=== PATIENT | male | born 1960 | race Asian ===

== ENCOUNTER 2018-04-29 11:47 | Emergency (ER) | payer MEDICAID ==
[~2018-04-29] VITALS: Ht 182.9 cm; Wt 126.4 kg
[~2018-04-29 11:47] MED LIST: ASPI81 PO; ATOR40TA28 PO; CARV3 PO; DIGO-44 PO; FURO40 PO; GLIP5 PO; ISOS5TAB5 PO; LISI-662 PO; METF500T6 PO; RIVA20TA PO
[2018-04-29 12:07] VITALS: BP 123/77
[2018-04-29 12:14] LABS: GLUCOSE,POINT OF CARE 137 MG/DL (70-110)
[2018-04-29] MEDS ORDERED: LISINOPRIL 10 MG TABLET PO ONE (14:45)
[2018-04-29] MEDS ORDERED: FUROSEMIDE 20 MG TABLET PO ONE (14:45)
[2018-04-29] MEDS ORDERED: ASPIRIN 81 MG CHEWABLE TABLET PO ONE (14:45)
[2018-04-29] MEDS ORDERED: ATORVASTATIN CALCIUM 40 MG TABLET PO ONE (14:45)
[2018-04-29] MEDS ORDERED: MetFORMIN HCL 500 MG TABLET PO ONE (14:45)
[2018-04-29] MEDS ORDERED: ISOSORBIDE DINITRATE 5 MG TABLET PO ONE (14:45)
[2018-04-29] MEDS ORDERED: RIVAROXABAN 20 MG TABLET PO ONE (14:45)
[2018-04-29] MEDS ORDERED: GlipiZIDE 5 MG TABLET PO ONE (14:45)
[2018-04-29] MEDS ORDERED: CARVEDILOL 3.125 MG TABLET PO ONE (14:45)
[2018-04-29] MEDS ORDERED: DIGOXIN 250 MCG/ML 2 ML AMP IVP ONE (14:45)
== END 2018-04-29 14:48 | disposition left against medical advice (07) ==
LOC: EMS 11:47
DX: I11.0 Hypertensive heart disease with heart failure (principal); I50.9 Heart failure, unspecified; R60.0 Localized edema; I48.91 Unspecified atrial fibrillation; F17.210 Nicotine dependence, cigarettes, uncomplicated; Z91.19 Patient's noncompliance with other medical treatment and regimen; Z59.0 Homelessness; Z91.013 Allergy to seafood
CPT/HCPCS: 93005; 99285

== ENCOUNTER 2021-12-09 16:25 | Inpatient (IN) | payer MEDICAID ==
[~2021-12-09] VITALS: Ht 182.9 cm; Wt 139.9 kg
[~2021-12-09 16:25] MED LIST changes: +ASPI-1450 PO; -ASPI81 PO; -DIGO-44 PO; +DIGO125T84 PO; -LISI-662 PO; +LISI-894 PO; +METF-1211 PO; -METF500T6 PO
[2021-12-09 18:15] LABS: APPEARANCE,URINE CLEAR (CLEAR); BILIRUBIN,URINE NEGATIVE (NEGATIVE); GLUCOSE, URINE (UA) NEGATIVE (NEGATIVE); KETONES,URINE NEGATIVE (NEGATIVE); LEUKOCYTE ESTERASE ,URINE NEGATIVE (NEGATIVE); NITRATE,URINE NEGATIVE (NEGATIVE); OCCULT BLOOD,URINE NEGATIVE (NEGATIVE); PH,URINE 5.5 (5.0-8.0); PROTEIN,URINE NEGATIVE (NEGATIVE); UROBILINOGEN,URINE 0.2 mg/dL (<=1.0)
[2021-12-09 18:32] LABS: BASOPHILS % (AUTO) 1.2 % (0.0-2.0); EOSINOPHILS % (AUTO) 0.1 % (1.0-6.0); HEMATOCRIT 26.7 % (41-53); HEMOGLOBIN 8.1 g/dL (13.5-17.5); LYMPHOCYTES # (AUTO) 0.2 K/uL (1.0-4.8); LYMPHOCYTES % (AUTO) 5.7 % (22.0-44.0); MEAN CORPUSCULAR HEMOGLOBIN 26.4 pg (26.0-34.0); MEAN CORPUSCULAR HGB CONC 30.2 G/dL (31.0-37.0); MEAN CORPUSCULAR VOLUME 87 fL (80-100); MONOCYTES % (AUTO) 0.9 % (2.0-9.0); NEUTROPHILS # (AUTO) 3.7 K/uL (1.8-7.7); PLATELET COUNT (AUTO) 319 K/uL (150-450); RED BLOOD CELL COUNT(AUTO) 3.06 MIL/uL (4.50-5.90); RED CELL DISTRIBUTION WIDTH 18.4 % (11.5-14.5)
[2021-12-09 18:33] LABS: NEUTROPHILS % (AUTO) 92.1 % (40.0-70.0)
[2021-12-09 18:35] LABS: ANION GAP 3 mmol/L (8-16); CALCIUM, TOTAL 8.7 mg/dL (8.8-10.5); CARBON DIOXIDE 32 mmol/L (22-29); CHLORIDE 102 mmol/L (98-107); CREATININE 1.12 mg/dL (0.60-1.30); GLOMERULAR FILTR. RATE CALC > 60 mL/min (>60); GLUCOSE,RANDOM 183 mg/dL (70-110); POTASSIUM 5.8 mmol/L (3.5-5.1); SODIUM SERUM 137 mmol/L (136-145); UREA NITROGEN, BLOOD 28 mg/dL (7-18)
[2021-12-09 18:41] LABS: ALANINE AMINOTRANSFERASE 9 U/L (12-78); ALBUMIN 2.5 g/dL (3.4-5.0); ALKALINE PHOSPHATASE 147 U/L (46-116); ASPARTATE AMINOTRANSFERASE 15 U/L (15-37); BILIRUBIN,TOTAL 0.7 mg/dL (0.1-1.0); CREATINE KINASE, TOTAL ONLY 27 U/L (39-308); TOTAL PROTEIN, SERUM 7.1 g/dL (6.4-8.2)
[2021-12-09 18:47] LABS: B-TYPE NATRIURETIC PEPTIDE 464 pg/mL (0-100)
[2021-12-09] MEDS ORDERED: INSULIN REGULAR, HUMAN 100 UNITS/ML SQ ONE (20:00)
[2021-12-09] MEDS ORDERED: FUROSEMIDE 40 MG/4 ML VIAL IVP ONE (20:00)
[2021-12-09] MEDS ORDERED: DEXTROSE 50%-WATER 25 GM/50 ML SYRINGE IVP ONE (20:00)
[2021-12-09] MEDS ORDERED: ALBUTEROL SULFATE 5 MG/ML 20 ML NEB SOLN [BULK] NEB ONE (20:00)
[2021-12-09] MEDS ORDERED: ONDANSETRON HCL 4 MG/2 ML VIAL IVP PRN (20:00)
[2021-12-09 20:01] LABS: RETICULOCYTE % (AUTO) 2.7 % (0.5-2.3)
[2021-12-09 20:11] LABS: % IRON SATURATION 4.7 % (30-44)
[2021-12-09] MEDS ORDERED: DEXTROSE 50%-WATER 25 GM/50 ML SYRINGE IVP PRN (21:15)
[2021-12-09] MEDS ORDERED: 0.9% SODIUM CHLORIDE 5 ML NEB SOLUTION NEB ONE (21:32)
[2021-12-09] MEDS ORDERED: IPRATROPIUM BROMIDE HFA 17 MCG/PUFF 12.9 GM INHALER IH PRN (22:15)
[2021-12-09] MEDS ORDERED: ALBUTEROL SULFATE 2.5 MG/0.5 ML NEB SOLUTION NEB PRN (22:15)
[2021-12-09] MEDS: FUROSEMIDE 20 MG/2 ML VIAL IVP SCH (23:18)
[2021-12-09 23:22] LABS: CALCIUM, TOTAL 8.5 mg/dL (8.8-10.5); CREATININE 1.22 mg/dL (0.60-1.30); POTASSIUM 5.7 mmol/L (3.5-5.1)
[2021-12-09 23:28] LABS: INR 1.2 (0.9-1.1); PROTHROMBIN TIME 12.2 SEC (9.4-11.6)
[2021-12-10] MEDS ORDERED: HEPARIN SODIUM,PORCINE 5,000 UNITS/ML VIAL SQ SCH
[2021-12-10 00:13] VITALS: BP 141/68
[2021-12-10 04:00] VITALS: BP 142/92
[2021-12-10] MEDS: FUROSEMIDE 20 MG/2 ML VIAL IVP SCH ×4 (04:04→22:16)
[2021-12-10 06:16] LABS: GLUCOMETER DEV NAME(LOC) 5N.1C; GLUCOSE,POINT OF CARE 139 MG/DL (70-110)
[2021-12-10] MEDS ORDERED: INSULIN REGULAR, HUMAN 100 UNITS/ML IVP ONE (06:30)
[2021-12-10] MEDS ORDERED: SODIUM POLYSTYRENE SULFONATE 15 GM/60 ML SUSPENSION BOTTLE PO ONE (07:00)
[2021-12-10 08:12] LABS: INR 1.1 (0.9-1.1)
[2021-12-10 08:15] LABS: ALANINE AMINOTRANSFERASE 10 U/L (12-78); ALBUMIN 2.6 g/dL (3.4-5.0); ALKALINE PHOSPHATASE 143 U/L (46-116); ASPARTATE AMINOTRANSFERASE 14 U/L (15-37); BILIRUBIN,TOTAL 0.7 mg/dL (0.1-1.0); DIGOXIN 1.32 ng/mL (0.90-2.00); TOTAL PROTEIN, SERUM 7.1 g/dL (6.4-8.2)
[2021-12-10] MEDS: CARVEDILOL 3.125 MG TABLET PO SCH ×2 (08:20→21:14)
[2021-12-10] MEDS: ASPIRIN 81 MG CHEWABLE TABLET PO SCH (08:20)
[2021-12-10 09:30] VITALS: BP 87/49
[2021-12-10 09:44] LABS: ANION GAP 4 mmol/L (8-16); CALCIUM, TOTAL 8.9 mg/dL (8.8-10.5); CARBON DIOXIDE 33 mmol/L (22-29); CHLORIDE 102 mmol/L (98-107); CREATININE 0.91 mg/dL (0.60-1.30); GLOMERULAR FILTR. RATE CALC > 60 mL/min (>60); GLUCOSE,RANDOM 150 mg/dL (70-110); POTASSIUM 5.4 mmol/L (3.5-5.1); SODIUM SERUM 139 mmol/L (136-145); UREA NITROGEN, BLOOD 28 mg/dL (7-18)
[2021-12-10 17:01] LABS: GLUCOMETER DEV NAME(LOC) 5N.1C; GLUCOSE,POINT OF CARE 111 MG/DL (70-110)
[2021-12-10] MEDS: RIVAROXABAN 20 MG TABLET PO SCH (17:27)
[2021-12-10 17:46] LABS: GLUCOMETER DEV NAME(LOC) 5N.1C; GLUCOSE,POINT OF CARE 131 MG/DL (70-110)
[2021-12-10 19:14] VITALS: BP 136/72
[2021-12-10] MEDS: MELATONIN 3 MG TABLET PO PRN (21:13)
[2021-12-10] MEDS: ATORVASTATIN CALCIUM 40 MG TABLET PO SCH (21:14)
[2021-12-10] MEDS ORDERED: VANCOMYCIN HCL 1.5 GM in DEXTROSE 5%-WATER 250 ML IV ONE (21:15)
[2021-12-10] MEDS: ACETAMINOPHEN 325 MG TABLET PO PRN (21:53)
[2021-12-10 23:50] VITALS: BP 110/62
[2021-12-11 03:30] VITALS: BP 119/68
[2021-12-11] MEDS: FUROSEMIDE 20 MG/2 ML VIAL IVP SCH ×3 (06:00→17:20)
[2021-12-11 06:03] LABS: BASOPHILS % (AUTO) 1.5 % (0.0-2.0); EOSINOPHILS % (AUTO) 1.7 % (1.0-6.0); HEMOGLOBIN 7.4 g/dL (13.5-17.5); LYMPHOCYTES # (AUTO) 0.5 K/uL (1.0-4.8); LYMPHOCYTES % (AUTO) 7.3 % (22.0-44.0); MEAN CORPUSCULAR HEMOGLOBIN 26.5 pg (26.0-34.0); MEAN CORPUSCULAR HGB CONC 30.8 G/dL (31.0-37.0); MEAN CORPUSCULAR VOLUME 86 fL (80-100); MONOCYTES # (AUTO) 0.7 K/uL (0.1-1.0); MONOCYTES % (AUTO) 9.3 % (2.0-9.0); NEUTROPHILS # (AUTO) 5.6 K/uL (1.8-7.7); NEUTROPHILS % (AUTO) 80.2 % (40.0-70.0); PLATELET COUNT (AUTO) 335 K/uL (150-450); RED BLOOD CELL COUNT(AUTO) 2.79 MIL/uL (4.50-5.90); RED CELL DISTRIBUTION WIDTH 18.6 % (11.5-14.5)
[2021-12-11 06:22] LABS: INR 1.5 (0.9-1.1); PROTHROMBIN TIME 15.1 SEC (9.4-11.6)
[2021-12-11 06:50] LABS: ALANINE AMINOTRANSFERASE 9 U/L (12-78); ALBUMIN 2.5 g/dL (3.4-5.0); ALKALINE PHOSPHATASE 137 U/L (46-116); ANION GAP 4 mmol/L (8-16); ASPARTATE AMINOTRANSFERASE 20 U/L (15-37); BILIRUBIN,TOTAL 0.9 mg/dL (0.1-1.0); CALCIUM, TOTAL 8.5 mg/dL (8.8-10.5); CARBON DIOXIDE 33 mmol/L (22-29); CHLORIDE 101 mmol/L (98-107); CREATININE 0.91 mg/dL (0.60-1.30); GLOMERULAR FILTR. RATE CALC > 60 mL/min (>60); GLUCOSE,RANDOM 92 mg/dL (70-110); POTASSIUM 4.7 mmol/L (3.5-5.1); SODIUM SERUM 138 mmol/L (136-145); TOTAL PROTEIN, SERUM 6.5 g/dL (6.4-8.2); UREA NITROGEN, BLOOD 25 mg/dL (7-18)
[2021-12-11] MEDS: CARVEDILOL 3.125 MG TABLET PO SCH ×2 (08:01→21:07)
[2021-12-11] MEDS: ASPIRIN 81 MG CHEWABLE TABLET PO SCH (08:01)
[2021-12-11] MEDS: VANCOMYCIN HCL 1.25 GM in DEXTROSE 5%-WATER 250 ML IV SCH ×2 (08:34→16:04)
[2021-12-11 08:35] VITALS: BP 112/64
[2021-12-11 10:01] LABS: GLUCOMETER DEV NAME(LOC) 5N.1C; GLUCOSE,POINT OF CARE 116 MG/DL (70-110)
[2021-12-11 13:52] LABS: C-REACTIVE PROTEIN QUANT 0.55 mg/dL (0.00-0.30); CREATINE KINASE, TOTAL ONLY 22 U/L (39-308); FERRITIN 133 ng/mL (26-388)
[2021-12-11 16:21] LABS: GLUCOMETER DEV NAME(LOC) 5S.2B; GLUCOSE,POINT OF CARE 105 MG/DL (70-110)
[2021-12-11] MEDS: RIVAROXABAN 20 MG TABLET PO SCH (17:19)
[2021-12-11] MEDS: ATORVASTATIN CALCIUM 40 MG TABLET PO SCH (21:07)
[2021-12-11 22:31] VITALS: BP 135/85
[2021-12-11 23:56] LABS: GLUCOMETER DEV NAME(LOC) 5N.1C; GLUCOSE,POINT OF CARE 128 MG/DL (70-110)
[2021-12-12] VITALS: BP 105/62
[2021-12-12] MEDS: FUROSEMIDE 20 MG/2 ML VIAL IVP SCH ×3 (01:15→11:55)
[2021-12-12] MEDS: VANCOMYCIN HCL 1.25 GM in DEXTROSE 5%-WATER 250 ML IV SCH ×2 (01:15→08:08)
[2021-12-12] MEDS: FUROSEMIDE 40 MG/4 ML VIAL IVP SCH ×3 (03:00→20:30)
[2021-12-12 04:00] VITALS: BP 132/63
[2021-12-12 05:52] LABS: BASOPHILS % (AUTO) 2.7 % (0.0-2.0); EOSINOPHILS % (AUTO) 4.2 % (1.0-6.0); HEMATOCRIT 24.9 % (41-53); HEMOGLOBIN 7.7 g/dL (13.5-17.5); LYMPHOCYTES # (AUTO) 0.6 K/uL (1.0-4.8); LYMPHOCYTES % (AUTO) 9.1 % (22.0-44.0); MEAN CORPUSCULAR HEMOGLOBIN 26.4 pg (26.0-34.0); MEAN CORPUSCULAR HGB CONC 30.7 G/dL (31.0-37.0); MEAN CORPUSCULAR VOLUME 86 fL (80-100); MONOCYTES # (AUTO) 0.9 K/uL (0.1-1.0); MONOCYTES % (AUTO) 12.6 % (2.0-9.0); NEUTROPHILS # (AUTO) 4.9 K/uL (1.8-7.7); NEUTROPHILS % (AUTO) 71.4 % (40.0-70.0); PLATELET COUNT (AUTO) 314 K/uL (150-450); RED CELL DISTRIBUTION WIDTH 18.2 % (11.5-14.5)
[2021-12-12 06:03] LABS: INR 1.3 (0.9-1.1)
[2021-12-12 07:26] LABS: GLUCOMETER DEV NAME(LOC) 5S.2B; GLUCOSE,POINT OF CARE 108 MG/DL (70-110)
[2021-12-12] MEDS: ASPIRIN 81 MG CHEWABLE TABLET PO SCH (08:08)
[2021-12-12] MEDS: CARVEDILOL 3.125 MG TABLET PO SCH ×2 (08:08→20:21)
[2021-12-12 08:09] LABS: ALANINE AMINOTRANSFERASE 11 U/L (12-78); ALBUMIN 2.5 g/dL (3.4-5.0); ALKALINE PHOSPHATASE 142 U/L (46-116); ANION GAP 9 mmol/L (8-16); ASPARTATE AMINOTRANSFERASE 19 U/L (15-37); BILIRUBIN,TOTAL 0.7 mg/dL (0.1-1.0); CALCIUM, TOTAL 8.5 mg/dL (8.8-10.5); CARBON DIOXIDE 32 mmol/L (22-29); CHLORIDE 97 mmol/L (98-107); CREATININE 0.88 mg/dL (0.60-1.30); GLOMERULAR FILTR. RATE CALC > 60 mL/min (>60); GLUCOSE,RANDOM 127 mg/dL (70-110); POTASSIUM 4.5 mmol/L (3.5-5.1); SODIUM SERUM 138 mmol/L (136-145); TOTAL PROTEIN, SERUM 6.5 g/dL (6.4-8.2); UREA NITROGEN, BLOOD 23 mg/dL (7-18); VANCOMYCIN,RANDOM 20.7 mcg/mL (25.0-50.0)
[2021-12-12 08:45] VITALS: BP 84/50
[2021-12-12 11:58] LABS: COVID AG,FIA SOURCE NASOPHARYNGEAL
[2021-12-12 15:19] VITALS: BP 88/67
[2021-12-12] MEDS: VANCOMYCIN HCL 1.5 GM in DEXTROSE 5%-WATER 250 ML IV SCH (16:33)
[2021-12-12] MEDS: RIVAROXABAN 20 MG TABLET PO SCH (17:16)
[2021-12-12 18:01] LABS: GLUCOMETER DEV NAME(LOC) 5S.2B; GLUCOSE,POINT OF CARE 134 MG/DL (70-110)
[2021-12-12 20:01] VITALS: BP 137/86
[2021-12-12] MEDS: ATORVASTATIN CALCIUM 40 MG TABLET PO SCH (20:21)
[2021-12-12] MEDS: INSULIN LISPRO 100 UNITS/ML SQ PRN (20:21)
[2021-12-12 23:01] LABS: GLUCOMETER DEV NAME(LOC) 5S.2B; GLUCOSE,POINT OF CARE 149 MG/DL (70-110)
[2021-12-12 23:30] VITALS: BP 128/79
[2021-12-13] MEDS ORDERED: DiphenhydrAMINE HCL 50 MG/ML VIAL IVP ONE
[2021-12-13] MEDS ORDERED: HALOPERIDOL DECANOATE 100 MG/ML VIAL IM ONE
[2021-12-13] MEDS ORDERED: HALOPERIDOL LACTATE 5 MG/ML VIAL IM ONE (00:15)
[2021-12-13] MEDS: VANCOMYCIN HCL 1.5 GM in DEXTROSE 5%-WATER 250 ML IV SCH ×3 (01:18→16:20)
[2021-12-13] MEDS: FUROSEMIDE 40 MG/4 ML VIAL IVP SCH ×2 (03:21→21:04)
[2021-12-13 07:26] LABS: GLUCOMETER DEV NAME(LOC) 5S.2B; GLUCOSE,POINT OF CARE 96 MG/DL (70-110)
[2021-12-13 07:29] LABS: ANION GAP 4 mmol/L (8-16); CALCIUM, TOTAL 8.7 mg/dL (8.8-10.5); CARBON DIOXIDE 34 mmol/L (22-29); CHLORIDE 97 mmol/L (98-107); CREATININE 0.76 mg/dL (0.60-1.30); GLOMERULAR FILTR. RATE CALC > 60 mL/min (>60); GLUCOSE,RANDOM 98 mg/dL (70-110); POTASSIUM 4.7 mmol/L (3.5-5.1); SODIUM SERUM 135 mmol/L (136-145); UREA NITROGEN, BLOOD 18 mg/dL (7-18)
[2021-12-13] MEDS: ASPIRIN 81 MG CHEWABLE TABLET PO SCH (08:14)
[2021-12-13] MEDS: CARVEDILOL 3.125 MG TABLET PO SCH ×2 (08:15→21:03)
[2021-12-13] MEDS ORDERED: SODIUM CHLORIDE 0.9% 100 ML ONE (08:53)
[2021-12-13 09:06] VITALS: BP 115/70
[2021-12-13] MEDS: INSULIN LISPRO 100 UNITS/ML SQ PRN (12:17)
[2021-12-13 13:03] VITALS: BP 135/85
[2021-12-13 13:11] LABS: GLUCOMETER DEV NAME(LOC) 5S.1B; GLUCOSE,POINT OF CARE 146 MG/DL (70-110)
[2021-12-13] MEDS: LISINOPRIL 5 MG TABLET PO SCH (14:15)
[2021-12-13 16:16] LABS: GLUCOMETER DEV NAME(LOC) 5S.2B; GLUCOSE,POINT OF CARE 128 MG/DL (70-110)
[2021-12-13 16:45] VITALS: BP 123/64
[2021-12-13] MEDS: RIVAROXABAN 20 MG TABLET PO SCH (17:27)
[2021-12-13 19:49] VITALS: BP 145/78
[2021-12-13] MEDS: MELATONIN 3 MG TABLET PO PRN (21:03)
[2021-12-13] MEDS: LORazepam 1 MG TABLET PO PRN (21:04)
[2021-12-13] MEDS: ATORVASTATIN CALCIUM 40 MG TABLET PO SCH (21:04)
[2021-12-14 00:06] LABS: GLUCOMETER DEV NAME(LOC) 5S.2B; GLUCOSE,POINT OF CARE 128 MG/DL (70-110)
[2021-12-14 00:10] VITALS: BP 127/84
[2021-12-14] MEDS: VANCOMYCIN HCL 1.5 GM in DEXTROSE 5%-WATER 250 ML IV SCH ×2 (00:26→20:41)
[2021-12-14 05:03] VITALS: BP 137/68
[2021-12-14 08:21] LABS: ANION GAP 7 mmol/L (8-16); CALCIUM, TOTAL 8.7 mg/dL (8.8-10.5); CARBON DIOXIDE 31 mmol/L (22-29); CHLORIDE 97 mmol/L (98-107); GLOMERULAR FILTR. RATE CALC > 60 mL/min (>60); GLUCOSE,RANDOM 112 mg/dL (70-110); SODIUM SERUM 135 mmol/L (136-145); UREA NITROGEN, BLOOD 18 mg/dL (7-18); VANCOMYCIN,RANDOM 37.8 mcg/mL (25.0-50.0)
[2021-12-14 08:34] VITALS: BP 144/86
[2021-12-14 08:45] LABS: GLUCOMETER DEV NAME(LOC) 5S.2B; GLUCOSE,POINT OF CARE 107 MG/DL (70-110)
[2021-12-14] MEDS: LORazepam 1 MG TABLET PO PRN ×2 (08:45→18:02)
[2021-12-14] MEDS: CARVEDILOL 3.125 MG TABLET PO SCH ×2 (08:45→20:44)
[2021-12-14] MEDS: LISINOPRIL 5 MG TABLET PO SCH (08:46)
[2021-12-14] MEDS: FUROSEMIDE 40 MG/4 ML VIAL IVP SCH ×2 (08:46→20:39)
[2021-12-14 12:42] VITALS: BP 100/58
[2021-12-14 15:00] VITALS: BP 104/61
[2021-12-14 17:26] LABS: GLUCOMETER DEV NAME(LOC) 5S.1B; GLUCOSE,POINT OF CARE 120 MG/DL (70-110)
[2021-12-14] MEDS: RIVAROXABAN 20 MG TABLET PO SCH (18:02)
[2021-12-14] MEDS: ATORVASTATIN CALCIUM 40 MG TABLET PO SCH (20:39)
[2021-12-14] MEDS: MELATONIN 3 MG TABLET PO PRN (20:39)
[2021-12-14 21:21] LABS: GLUCOMETER DEV NAME(LOC) 5S.1B; GLUCOSE,POINT OF CARE 132 MG/DL (70-110)
[2021-12-14 21:30] VITALS: BP 135/90
[2021-12-15] VITALS (9 sets, daily range): BP systolic 99–153; BP diastolic 50–96
[2021-12-15] MEDS: LORazepam 1 MG TABLET PO PRN ×3 (01:26→21:12)
[2021-12-15] MEDS: VANCOMYCIN HCL 1.5 GM in DEXTROSE 5%-WATER 250 ML IV SCH ×2 (08:00→20:39)
[2021-12-15 08:11] LABS: GLUCOMETER DEV NAME(LOC) 5S.2B; GLUCOSE,POINT OF CARE 98 MG/DL (70-110)
[2021-12-15 08:11] LABS: GLUCOMETER DEV NAME(LOC) 5S.1B; GLUCOSE,POINT OF CARE 128 MG/DL (70-110)
[2021-12-15 08:53] LABS: ANION GAP 2 mmol/L (8-16); CALCIUM, TOTAL 8.5 mg/dL (8.8-10.5); CARBON DIOXIDE 34 mmol/L (22-29); CHLORIDE 98 mmol/L (98-107); CREATININE 0.86 mg/dL (0.60-1.30); GLOMERULAR FILTR. RATE CALC > 60 mL/min (>60); GLUCOSE,RANDOM 123 mg/dL (70-110); POTASSIUM 5.2 mmol/L (3.5-5.1); SODIUM SERUM 134 mmol/L (136-145); UREA NITROGEN, BLOOD 20 mg/dL (7-18)
[2021-12-15 08:57] LABS: B-TYPE NATRIURETIC PEPTIDE 211 pg/mL (0-100)
[2021-12-15] MEDS: LISINOPRIL 5 MG TABLET PO SCH (09:13)
[2021-12-15] MEDS: FUROSEMIDE 40 MG/4 ML VIAL IVP SCH ×2 (09:14→20:40)
[2021-12-15 17:16] LABS: GLUCOMETER DEV NAME(LOC) 5S.2B; GLUCOSE,POINT OF CARE 100 MG/DL (70-110)
[2021-12-15] MEDS: RIVAROXABAN 20 MG TABLET PO SCH (18:10)
[2021-12-15 19:51] LABS: GLUCOMETER DEV NAME(LOC) 5S.1B; GLUCOSE,POINT OF CARE 95 MG/DL (70-110)
[2021-12-15] MEDS: ATORVASTATIN CALCIUM 40 MG TABLET PO SCH (20:40)
[2021-12-15] MEDS: MELATONIN 3 MG TABLET PO PRN (21:12)
[2021-12-15] MEDS: ACETAMINOPHEN 325 MG TABLET PO PRN (21:12)
[2021-12-16 04:50] VITALS: BP 136/64
[2021-12-16 07:13] LABS: ALANINE AMINOTRANSFERASE 14 U/L (12-78); ALBUMIN 2.9 g/dL (3.4-5.0); ALKALINE PHOSPHATASE 189 U/L (46-116); ANION GAP 0 mmol/L (8-16); ASPARTATE AMINOTRANSFERASE 26 U/L (15-37); BILIRUBIN,TOTAL 0.9 mg/dL (0.1-1.0); CALCIUM, TOTAL 8.5 mg/dL (8.8-10.5); CARBON DIOXIDE 38 mmol/L (22-29); CHLORIDE 95 mmol/L (98-107); CREATININE 0.96 mg/dL (0.60-1.30); GLOMERULAR FILTR. RATE CALC > 60 mL/min (>60); GLUCOSE,RANDOM 131 mg/dL (70-110); POTASSIUM 5.4 mmol/L (3.5-5.1); SODIUM SERUM 133 mmol/L (136-145); TOTAL PROTEIN, SERUM 7.5 g/dL (6.4-8.2); UREA NITROGEN, BLOOD 21 mg/dL (7-18)
[2021-12-16 07:53] VITALS: BP 124/64
[2021-12-16 08:34] LABS: ABG BASE EXCESS 9.2 mmol/L (-2.0-3.0); ABG CARBOXYHEMOGLOBIN 1.8 % (0.0-1.5); ABG OXYGEN CONTENT 10.8 mL/dL (15.0-23.0); ABG OXYGEN SATURATION 87.3 % (95.0-98.0); ABG OXYHEMOGLOBIN 85.7 % (94.0-100.0); ABG TOTAL HEMOGLOBIN 8.9 G/dL (12.0-18.0); PO2, ARTERIAL BG 56.4 mmHg (79.0-87.0); SOURCE, BLOOD GAS ARTERIAL
[2021-12-16 08:36] LABS: ABG PCO2 95 mmHg (35-45); SITE, BLOOD GAS LFT RADIAL
[2021-12-16 08:37] LABS: ABG A-A DIFF O2 68.7 mmHg (10-20.0); O2 DEVICE,BLOOD GAS NC (ROOM AIR)
[2021-12-16] MEDS: LISINOPRIL 5 MG TABLET PO SCH ×2 (09:00→12:05)
[2021-12-16 09:21] LABS: GLUCOMETER DEV NAME(LOC) 5N.3; GLUCOSE,POINT OF CARE 124 MG/DL (70-110)
[2021-12-16] MEDS ORDERED: SODIUM CHLORIDE 0.9% 500 ML IV ONE (10:04)
[2021-12-16] MEDS: VANCOMYCIN HCL 1.5 GM in DEXTROSE 5%-WATER 250 ML IV SCH ×2 (10:07→21:49)
[2021-12-16] MEDS: FUROSEMIDE 40 MG/4 ML VIAL IVP SCH ×2 (10:07→22:28)
[2021-12-16 12:15] VITALS: BP 113/68
[2021-12-16 15:29] LABS: ABG BASE EXCESS 5.3 mmol/L (-2.0-3.0); ABG CARBOXYHEMOGLOBIN 1.6 % (0.0-1.5); ABG HCO3 27.6 mmol/L (22.0-26.0); ABG METHEMOGLOBIN 0.3 % (0.0-1.5); ABG OXYGEN CONTENT 8.2 mL/dL (15.0-23.0); ABG OXYHEMOGLOBIN 65.8 % (94.0-100.0); ABG PH 7.224 (7.35-7.450); ABG TOTAL HEMOGLOBIN 8.8 G/dL (12.0-18.0); SOURCE, BLOOD GAS ARTERIAL; TEMPERATURE, FAHRENHEIT, BG 97.6 FAHREN (96.0-98.6)
[2021-12-16 15:31] LABS: ABG A-A DIFF O2 193.8 mmHg (10-20.0); ABG OXYGEN SATURATION 67.1 % (95.0-98.0); ABG PCO2 81 mmHg (35-45); PO2, ARTERIAL BG 35.4 mmHg (79.0-87.0); SITE, BLOOD GAS LFT RADIAL
[2021-12-16 15:32] LABS: O2 DEVICE,BLOOD GAS BIPAP (ROOM AIR)
[2021-12-16 16:11] VITALS: BP 139/78
[2021-12-16 16:41] LABS: GLUCOMETER DEV NAME(LOC) 5N.1C; GLUCOSE,POINT OF CARE 129 MG/DL (70-110)
[2021-12-16 16:42] LABS: GLUCOMETER DEV NAME(LOC) 5N.1C; GLUCOSE,POINT OF CARE 186 MG/DL (70-110)
[2021-12-16 16:42] LABS: GLUCOMETER DEV NAME(LOC) 5N.1C; GLUCOSE,POINT OF CARE 109 MG/DL (70-110)
[2021-12-16 17:51] LABS: GLUCOMETER DEV NAME(LOC) 5N.3; GLUCOSE,POINT OF CARE 141 MG/DL (70-110)
[2021-12-16] MEDS ORDERED: HEPARIN SODIUM,PORCINE 5,000 UNITS/ML VIAL IVP PRN (19:30)
[2021-12-16 19:47] LABS: BASOPHILS % (AUTO) 0.9 % (0.0-2.0); EOSINOPHILS % (AUTO) 0.7 % (1.0-6.0); HEMATOCRIT 26.3 % (41-53); HEMOGLOBIN 7.9 g/dL (13.5-17.5); LYMPHOCYTES # (AUTO) 0.7 K/uL (1.0-4.8); LYMPHOCYTES % (AUTO) 8.1 % (22.0-44.0); MEAN CORPUSCULAR HEMOGLOBIN 26.4 pg (26.0-34.0); MEAN CORPUSCULAR HGB CONC 30.1 G/dL (31.0-37.0); MEAN CORPUSCULAR VOLUME 88 fL (80-100); MONOCYTES # (AUTO) 1.3 K/uL (0.1-1.0); MONOCYTES % (AUTO) 14.4 % (2.0-9.0); NEUTROPHILS # (AUTO) 6.7 K/uL (1.8-7.7); NEUTROPHILS % (AUTO) 75.9 % (40.0-70.0); PLATELET COUNT (AUTO) 258 K/uL (150-450); RED CELL DISTRIBUTION WIDTH 18.3 % (11.5-14.5)
[2021-12-16] MEDS: HALOPERIDOL LACTATE 5 MG/ML VIAL IVP PRN (19:49)
[2021-12-16 19:58] LABS: ABG CARBOXYHEMOGLOBIN 1.8 % (0.0-1.5); ABG METHEMOGLOBIN 0.3 % (0.0-1.5); ABG TOTAL HEMOGLOBIN 8.8 G/dL (12.0-18.0); SOURCE, BLOOD GAS ARTERIAL; TEMPERATURE, FAHRENHEIT, BG 98.6 FAHREN (96.0-98.6)
[2021-12-16 20:01] LABS: INR 1.4 (0.9-1.1); PROTHROMBIN TIME 14.1 SEC (9.4-11.6)
[2021-12-16 20:07] LABS: ABG BASE EXCESS 8.6 mmol/L (-2.0-3.0); ABG HCO3 30.9 mmol/L (22.0-26.0); ABG OXYGEN CONTENT 12.1 mL/dL (15.0-23.0); ABG OXYGEN SATURATION 98.2 % (95.0-98.0); ABG OXYHEMOGLOBIN 96.1 % (94.0-100.0); ABG PCO2 80 mmHg (35-45); ABG PH 7.267 (7.35-7.450); O2 DEVICE,BLOOD GAS BIPAP (ROOM AIR); PO2, ARTERIAL BG 107.6 mmHg (79.0-87.0); SITE, BLOOD GAS LFT RADIAL
[2021-12-16 20:08] LABS: INSPIRATORY TIME, BG 0.9 SEC; SPONTANEOUS VT, BG 478 ml; VENT MODE, BG BIPAP (ROOM AIR)
[2021-12-16 20:13] VITALS: BP 124/69
[2021-12-16] MEDS: DEXMEDETOMIDINE HCL 400 MCG in SODIUM CHLORIDE 0.9% 96 ML IV PRN (20:34)
[2021-12-16] MEDS ORDERED: SODIUM CHLORIDE 0.9% 250 ML IV ONE (21:43)
[2021-12-16] MEDS: HEPARIN SODIUM 25000 UNITS/D5W 250 ML IV PRN (22:22)
[2021-12-16] MEDS: ATORVASTATIN CALCIUM 40 MG TABLET PO SCH (22:28)
[2021-12-16] MEDS ORDERED: NOREPINEPHRINE 4 MG/D5%-WATER 250 ML IV ONE (22:58)
[2021-12-17 00:13] VITALS: BP 104/54
[2021-12-17 05:08] LABS: BASOPHILS % (AUTO) 1.2 % (0.0-2.0); EOSINOPHILS % (AUTO) 0.4 % (1.0-6.0); HEMOGLOBIN 7.1 g/dL (13.5-17.5); LYMPHOCYTES # (AUTO) 0.6 K/uL (1.0-4.8); LYMPHOCYTES % (AUTO) 7.8 % (22.0-44.0); MEAN CORPUSCULAR HEMOGLOBIN 26.3 pg (26.0-34.0); MEAN CORPUSCULAR HGB CONC 30.7 G/dL (31.0-37.0); MEAN CORPUSCULAR VOLUME 86 fL (80-100); MONOCYTES # (AUTO) 0.9 K/uL (0.1-1.0); MONOCYTES % (AUTO) 11.2 % (2.0-9.0); NEUTROPHILS # (AUTO) 6.6 K/uL (1.8-7.7); NEUTROPHILS % (AUTO) 79.4 % (40.0-70.0); PLATELET COUNT (AUTO) 217 K/uL (150-450); RED BLOOD CELL COUNT(AUTO) 2.69 MIL/uL (4.50-5.90); RED CELL DISTRIBUTION WIDTH 17.4 % (11.5-14.5)
[2021-12-17 05:36] LABS: ALANINE AMINOTRANSFERASE 10 U/L (12-78); ALBUMIN 2.4 g/dL (3.4-5.0); ALKALINE PHOSPHATASE 156 U/L (46-116); ANION GAP 4 mmol/L (8-16); ASPARTATE AMINOTRANSFERASE 19 U/L (15-37); BILIRUBIN,TOTAL 0.9 mg/dL (0.1-1.0); CALCIUM, TOTAL 8.2 mg/dL (8.8-10.5); CARBON DIOXIDE 35 mmol/L (22-29); CHLORIDE 97 mmol/L (98-107); CREATININE 1.09 mg/dL (0.60-1.30); GLOMERULAR FILTR. RATE CALC > 60 mL/min (>60); GLUCOSE,RANDOM 109 mg/dL (70-110); POTASSIUM 5.7 mmol/L (3.5-5.1); SODIUM SERUM 136 mmol/L (136-145); TOTAL PROTEIN, SERUM 6.2 g/dL (6.4-8.2); UREA NITROGEN, BLOOD 28 mg/dL (7-18); VANCOMYCIN,RANDOM 32.8 mcg/mL (25.0-50.0)
[2021-12-17 05:38] VITALS: BP 101/51
[2021-12-17 08:00] VITALS: BP 85/55
[2021-12-17] MEDS: FUROSEMIDE 40 MG/4 ML VIAL IVP SCH ×2 (08:30→20:56)
[2021-12-17] MEDS: HEPARIN SODIUM 25000 UNITS/D5W 250 ML IV PRN ×2 (08:32→18:40)
[2021-12-17] MEDS: VANCOMYCIN HCL 1.5 GM in DEXTROSE 5%-WATER 250 ML IV SCH (08:41)
[2021-12-17] MEDS ORDERED: SODIUM CHLORIDE 0.9% 500 ML IV ONE (09:53)
[2021-12-17] MEDS ORDERED: SODIUM POLYSTYRENE SULFONATE 15 GM/60 ML SUSPENSION BOTTLE PO ONE (10:30)
[2021-12-17] MEDS ORDERED: NOREPINEPHRINE BITARTRATE 8 MG in DEXTROSE 5%-WATER 242 ML IV PRN (10:45)
[2021-12-17 12:00] VITALS: BP 103/72
[2021-12-17 12:06] LABS: GLUCOSE,POINT OF CARE 105 MG/DL (70-110)
[2021-12-17 12:11] LABS: GLUCOSE,POINT OF CARE 116 MG/DL (70-110)
[2021-12-17] MEDS: DEXMEDETOMIDINE HCL 400 MCG in SODIUM CHLORIDE 0.9% 96 ML IV PRN ×3 (12:18→20:34)
[2021-12-17] MEDS: CefoTEtan DISOD 2 GM/DEXTROSE 50 ML IV SCH (15:14)
[2021-12-17 16:00] VITALS: BP 95/60
[2021-12-17 19:41] LABS: GLUCOSE,POINT OF CARE 110 MG/DL (70-110)
[2021-12-17] MEDS: ATORVASTATIN CALCIUM 40 MG TABLET PO SCH (20:56)
[2021-12-17 20:59] VITALS: BP 114/58
[2021-12-17 22:46] LABS: GLUCOSE,POINT OF CARE 109 MG/DL (70-110)
[2021-12-18 01:13] VITALS: BP 112/66
[2021-12-18] MEDS ORDERED: LIDOCAINE 1% 10 ML VIAL SQ ONE (02:15)
[2021-12-18] MEDS: CefoTEtan DISOD 2 GM/DEXTROSE 50 ML IV SCH ×2 (03:49→14:42)
[2021-12-18 04:16] VITALS: BP 144/77
[2021-12-18 08:00] VITALS: BP 115/65
[2021-12-18] MEDS ORDERED: VANCOMYCIN HCL 1.25 GM in DEXTROSE 5%-WATER 250 ML IV SCH (08:00)
[2021-12-18] MEDS: FUROSEMIDE 40 MG/4 ML VIAL IVP SCH (08:11)
[2021-12-18 08:20] LABS: ALBUMIN 2.4 g/dL (3.4-5.0); BILIRUBIN,TOTAL 0.9 mg/dL (0.1-1.0); CALCIUM, TOTAL 8.4 mg/dL (8.8-10.5); CREATININE 2.13 mg/dL (0.60-1.30); TOTAL PROTEIN, SERUM 6.2 g/dL (6.4-8.2)
[2021-12-18 08:31] LABS: POTASSIUM 6.2 mmol/L (3.5-5.1)
[2021-12-18] MEDS: DEXMEDETOMIDINE HCL 400 MCG in SODIUM CHLORIDE 0.9% 96 ML IV PRN ×2 (09:12→14:42)
[2021-12-18] MEDS: HALOPERIDOL LACTATE 5 MG/ML VIAL IVP PRN (09:13)
[2021-12-18 10:56] LABS: ABG CARBOXYHEMOGLOBIN 1.1 % (0.0-1.5); ABG HCO3 31.8 mmol/L (22.0-26.0); ABG METHEMOGLOBIN 0.3 % (0.0-1.5); ABG OXYGEN CONTENT 13.2 mL/dL (15.0-23.0); ABG OXYGEN SATURATION 97.5 % (95.0-98.0); ABG OXYHEMOGLOBIN 96.1 % (94.0-100.0); ABG PCO2 51 mmHg (35-45); ABG PH 7.437 (7.35-7.450); ABG TOTAL HEMOGLOBIN 9.7 G/dL (12.0-18.0); PO2, ARTERIAL BG 92.2 mmHg (79.0-87.0); SOURCE, BLOOD GAS ARTERIAL; TEMPERATURE, FAHRENHEIT, BG 99.2 FAHREN (96.0-98.6)
[2021-12-18 11:00] LABS: SITE, BLOOD GAS LFT RADIAL
[2021-12-18 11:01] LABS: O2 DEVICE,BLOOD GAS BIPAP (ROOM AIR)
[2021-12-18 11:02] LABS: VT, ABG 580 ml
[2021-12-18 12:00] VITALS: BP 96/54
[2021-12-18 12:01] LABS: GLUCOSE,POINT OF CARE 108 MG/DL (70-110)
[2021-12-18] MEDS ORDERED: CALCIUM GLUCONATE 100 MG/ML 10 ML IVP ONE (12:30)
[2021-12-18] MEDS ORDERED: SODIUM ZIRCONIUM CYCLOSILICATE 5 GM POWDER PACKET PO ONE (12:30)
[2021-12-18] MEDS: HEPARIN SODIUM 25000 UNITS/D5W 250 ML IV PRN (14:41)
[2021-12-18 16:00] VITALS: BP 85/49
[2021-12-18 16:00] LABS: ABG BASE EXCESS 7.9 mmol/L (-2.0-3.0); ABG HCO3 30.8 mmol/L (22.0-26.0); ABG METHEMOGLOBIN 0.3 % (0.0-1.5); ABG OXYGEN CONTENT 12.4 mL/dL (15.0-23.0); ABG OXYGEN SATURATION 98.1 % (95.0-98.0); ABG OXYHEMOGLOBIN 96.8 % (94.0-100.0); ABG PCO2 53 mmHg (35-45); ABG PH 7.406 (7.35-7.450); PO2, ARTERIAL BG 109.6 mmHg (79.0-87.0); SOURCE, BLOOD GAS ARTERIAL; TEMPERATURE, FAHRENHEIT, BG 99.1 FAHREN (96.0-98.6)
[2021-12-18 16:01] LABS: ABG A-A DIFF O2 85.1 mmHg (10-20.0); O2 DEVICE,BLOOD GAS NC (ROOM AIR); SITE, BLOOD GAS LFT RADIAL
[2021-12-18] MEDS: INSULIN LISPRO 100 UNITS/ML SQ PRN (17:09)
[2021-12-18 17:12] LABS: GLUCOSE,POINT OF CARE 158 MG/DL (70-110)
[2021-12-18 20:34] VITALS: BP 109/63
[2021-12-18] MEDS: HEPARIN SODIUM,PORCINE 5,000 UNITS/ML VIAL IVP PRN (21:04)
[2021-12-18] MEDS: ATORVASTATIN CALCIUM 40 MG TABLET PO SCH (21:07)
[2021-12-19 00:58] VITALS: BP 116/59
[2021-12-19] MEDS: CefoTEtan DISOD 2 GM/DEXTROSE 50 ML IV SCH ×2 (02:44→15:46)
[2021-12-19 04:14] VITALS: BP 99/49
[2021-12-19 05:30] LABS: ALBUMIN 2.4 g/dL (3.4-5.0); BILIRUBIN,TOTAL 0.9 mg/dL (0.1-1.0); CALCIUM, TOTAL 8.3 mg/dL (8.8-10.5); CREATININE 2.95 mg/dL (0.60-1.30); POTASSIUM 5.6 mmol/L (3.5-5.1); TOTAL PROTEIN, SERUM 6.3 g/dL (6.4-8.2)
[2021-12-19 07:41] LABS: GLUCOSE,POINT OF CARE 125 MG/DL (70-110)
[2021-12-19 08:00] VITALS: BP 103/47
[2021-12-19] MEDS ORDERED: VANCOMYCIN HCL 1.5 GM in DEXTROSE 5%-WATER 250 ML IV SCH (08:00)
[2021-12-19] MEDS: VANCOMYCIN HCL 1.25 GM in DEXTROSE 5%-WATER 250 ML IV SCH (08:28)
[2021-12-19] MEDS ORDERED: FUROSEMIDE 40 MG/4 ML VIAL IVP SCH (09:00)
[2021-12-19] MEDS: HEPARIN SODIUM 25000 UNITS/D5W 250 ML IV PRN (09:21)
[2021-12-19] MEDS: DEXMEDETOMIDINE HCL 400 MCG in SODIUM CHLORIDE 0.9% 96 ML IV PRN (11:11)
[2021-12-19] MEDS: BUMETANIDE 10 MG in DEXTROSE 5%-WATER 60 ML IV SCH (11:11)
[2021-12-19] MEDS ORDERED: SODIUM CHLORIDE 0.9% 250 ML IV ONE (11:22)
[2021-12-19 11:26] LABS: GLUCOSE,POINT OF CARE 133 MG/DL (70-110)
[2021-12-19 12:00] VITALS: BP 96/39
[2021-12-19] MEDS: HEPARIN SODIUM,PORCINE 5,000 UNITS/ML VIAL IVP PRN (12:26)
[2021-12-19] MEDS: SODIUM ZIRCONIUM CYCLOSILICATE 5 GM POWDER PACKET PO SCH ×2 (15:46→21:23)
[2021-12-19 16:00] VITALS: BP 130/69
[2021-12-19 16:25] LABS: CALCIUM, TOTAL 8.1 mg/dL (8.8-10.5); CREATININE 3.11 mg/dL (0.60-1.30); MAGNESIUM 2.1 mg/dL (1.80-2.40); PHOSPHORUS 5.2 mg/dL (2.5-4.9); POTASSIUM 5.3 mmol/L (3.5-5.1)
[2021-12-19] MEDS: INSULIN LISPRO 100 UNITS/ML SQ PRN (16:44)
[2021-12-19 16:51] LABS: GLUCOSE,POINT OF CARE 155 MG/DL (70-110)
[2021-12-19 21:01] VITALS: BP 129/75
[2021-12-19] MEDS: ATORVASTATIN CALCIUM 40 MG TABLET PO SCH (21:22)
[2021-12-20 00:42] VITALS: BP 100/56
[2021-12-20] MEDS: CefoTEtan DISOD 2 GM/DEXTROSE 50 ML IV SCH (03:46)
[2021-12-20 04:05] VITALS: BP 111/57
[2021-12-20 05:16] LABS: GLUCOSE,POINT OF CARE 129 MG/DL (70-110)
[2021-12-20] MEDS: BUMETANIDE 10 MG in DEXTROSE 5%-WATER 60 ML IV SCH (06:08)
[2021-12-20 06:33] LABS: CALCIUM, TOTAL 8.3 mg/dL (8.8-10.5); CREATININE 3.22 mg/dL (0.60-1.30); MAGNESIUM 1.8 mg/dL (1.80-2.40); PHOSPHORUS 5.6 mg/dL (2.5-4.9); POTASSIUM 5.1 mmol/L (3.5-5.1); TOTAL PROTEIN, SERUM 6.2 g/dL (6.4-8.2); VANCOMYCIN,RANDOM 43.5 mcg/mL (25.0-50.0)
[2021-12-20 07:35] LABS: GLUCOSE,POINT OF CARE 105 MG/DL (70-110)
[2021-12-20 08:00] VITALS: BP 114/50
[2021-12-20] MEDS: SODIUM ZIRCONIUM CYCLOSILICATE 5 GM POWDER PACKET PO SCH (08:32)
[2021-12-20] MEDS: VANCOMYCIN HCL 1.25 GM in DEXTROSE 5%-WATER 250 ML IV SCH (08:32)
[2021-12-20] MEDS ORDERED: VANCOMYCIN HCL 1 GM/D5% WATER 200 ML IV PRN (10:30)
[2021-12-20 10:58] LABS: ALBUMIN 2.4 g/dL (3.4-5.0); BILIRUBIN,TOTAL 0.6 mg/dL (0.1-1.0)
[2021-12-20 13:08] LABS: CALCIUM, TOTAL 8.6 mg/dL (8.8-10.5); CREATININE 3.18 mg/dL (0.60-1.30); POTASSIUM 4.9 mmol/L (3.5-5.1)
[2021-12-20 20:56] LABS: GLUCOMETER DEV NAME(LOC) 5N.1C; GLUCOSE,POINT OF CARE 102 MG/DL (70-110)
== END 2021-12-20 09:35 | disposition left against medical advice (07) | DRG 720 ==
LOC: EMS 16:36 → 5N 21:13 → 5S 12-15 10:37 → ICU 12-16 18:00
PROVIDERS: ADMIT Internal Medicine; ATTEND Internal Medicine
PROC: 5A09457 Assistance with Respiratory Ventilation, 24-96 Consecutive Hours, Continuous Positive Airway Pressure (ICD-10-PCS; principal; 2021-12-16)
DX: A41.02 Sepsis due to Methicillin resistant Staphylococcus aureus (principal); I50.23 Acute on chronic systolic (congestive) heart failure; G93.41 Metabolic encephalopathy; D68.9 Coagulation defect, unspecified; F29 Unspecified psychosis not due to a substance or known physiological condition; E87.1 Hypo-osmolality and hyponatremia; D63.1 Anemia in chronic kidney disease; I42.9 Cardiomyopathy, unspecified; I13.0 Hypertensive heart and chronic kidney disease with heart failure and stage 1 through stage 4 chronic kidney disease, or unspecified chronic kidney disease; I48.20 Chronic atrial fibrillation, unspecified; R18.8 Other ascites; L03.115 Cellulitis of right lower limb; E11.22 Type 2 diabetes mellitus with diabetic chronic kidney disease; E87.5 Hyperkalemia; T46.0X5A Adverse effect of cardiac-stimulant glycosides and drugs of similar action, initial encounter; N18.9 Chronic kidney disease, unspecified; K74.60 Unspecified cirrhosis of liver; I25.10 Atherosclerotic heart disease of native coronary artery without angina pectoris; E66.9 Obesity, unspecified; R65.20 Severe sepsis without septic shock; E78.5 Hyperlipidemia, unspecified; F17.210 Nicotine dependence, cigarettes, uncomplicated; I87.2 Venous insufficiency (chronic) (peripheral); J44.9 Chronic obstructive pulmonary disease, unspecified; J98.11 Atelectasis; N17.9 Acute kidney failure, unspecified; Z20.822 Contact with and (suspected) exposure to COVID-19; F12.90 Cannabis use, unspecified, uncomplicated; Z91.19 Patient's noncompliance with other medical treatment and regimen; Z79.01 Long term (current) use of anticoagulants; Z68.41 Body mass index [BMI] 40.0-44.9, adult; Z86.16 Personal history of COVID-19; Z87.01 Personal history of pneumonia (recurrent); Y92.89 Other specified places as the place of occurrence of the external cause; Z79.899 Other long term (current) drug therapy; Z90.49 Acquired absence of other specified parts of digestive tract
CPT/HCPCS: 36245; 36569; 36600; 70450; 71045; 71250; 76700; 76937; 80048; 80053; 80076; 80162; 80202; 81003; 82271; 82550; 82728; 82805; 82962; 83540; 83550; 83605; 83615; 83735; 83880; 84100; 84145; 84484; 85025; 85045; 85610; 85730; 86140; 87040; 87077; 87205; 93005; 93306; 94640; 94660; 97110; 97163; 97167; 97535; 99285; G0378; J0610; J1200; J1630; J1644; J1815; J1940; J3370; J3490; J7040; J7050; J7060; Q9967; 36415-L1; 36415-TC; J7611; U0003

== ENCOUNTER 2021-12-20 11:06 | Emergency (ER) | payer MEDICAID | END 2021-12-20 11:44 | disposition left against medical advice (07) | LOC: EMS 11:11 | DX: Z00.00 Encounter for general adult medical examination without abnormal findings (principal); Z53.21 Procedure and treatment not carried out due to patient leaving prior to being seen by health care provider ==

== ENCOUNTER 2021-12-20 12:08 | Inpatient (IN) | payer MEDICAID ==
[~2021-12-20] VITALS: Ht 182.9 cm; Wt 127.5 kg
[2021-12-20 12:00] VITALS: BP 141/75
[2021-12-20] MEDS ORDERED: ONDANSETRON HCL 4 MG/2 ML VIAL IVP PRN (12:30)
[2021-12-20] MEDS ORDERED: ACETAMINOPHEN 325 MG TABLET PO PRN (12:30)
[2021-12-20 14:11] LABS: BASOPHILS % (AUTO) 2.3 % (0.0-2.0); EOSINOPHILS % (AUTO) 0.7 % (1.0-6.0); HEMOGLOBIN 8.5 g/dL (13.5-17.5); LYMPHOCYTES # (AUTO) 0.4 K/uL (1.0-4.8); LYMPHOCYTES % (AUTO) 5.4 % (22.0-44.0); MEAN CORPUSCULAR HEMOGLOBIN 26.3 pg (26.0-34.0); MEAN CORPUSCULAR HGB CONC 31.6 G/dL (31.0-37.0); MEAN CORPUSCULAR VOLUME 83 fL (80-100); MONOCYTES # (AUTO) 0.7 K/uL (0.1-1.0); MONOCYTES % (AUTO) 9.5 % (2.0-9.0); NEUTROPHILS # (AUTO) 6.5 K/uL (1.8-7.7); NEUTROPHILS % (AUTO) 82.1 % (40.0-70.0); PLATELET COUNT (AUTO) 165 K/uL (150-450); RED BLOOD CELL COUNT(AUTO) 3.24 MIL/uL (4.50-5.90); RED CELL DISTRIBUTION WIDTH 17.5 % (11.5-14.5)
[2021-12-20] MEDS: BUMETANIDE 10 MG in DEXTROSE 5%-WATER 60 ML IV SCH (15:00)
[2021-12-20] MEDS ORDERED: HEPARIN SODIUM 25000 UNITS/D5W 250 ML IV SCH (15:00)
[2021-12-20] MEDS ORDERED: HEPARIN SODIUM,PORCINE 5,000 UNITS/ML VIAL IVP PRN ×2 (15:00)
[2021-12-20] MEDS ORDERED: HEPARIN SODIUM 25000 UNITS/D5W 250 ML IV PRN (15:00)
[2021-12-20] MEDS ORDERED: HEPARIN SODIUM,PORCINE 5,000 UNITS/ML VIAL IVP ONE (15:00)
[2021-12-20] MEDS ORDERED: ALBUTEROL SULFATE 2.5 MG/0.5 ML NEB SOLUTION NEB PRN (15:30)
[2021-12-20] MEDS ORDERED: GLUCAGON,HUMAN RECOMBINANT 1 MG VIAL IM PRN (15:30)
[2021-12-20] MEDS ORDERED: HALOPERIDOL LACTATE 5 MG/ML VIAL IVP PRN (15:30)
[2021-12-20] MEDS ORDERED: IPRATROPIUM BROMIDE HFA 17 MCG/PUFF 12.9 GM INHALER IH PRN (15:30)
[2021-12-20 15:58] LABS: INR 1.1 (0.9-1.1); PROTHROMBIN TIME 11.7 SEC (9.4-11.6)
[2021-12-20 16:00] VITALS: BP 125/62
[2021-12-20] MEDS ORDERED: HEPARIN SODIUM,PORCINE 5,000 UNITS/ML VIAL SQ SCH (16:00)
[2021-12-20] MEDS ORDERED: SODIUM CHLORIDE 0.9% 250 ML IV ONE (16:57)
[2021-12-20] MEDS: CefoTEtan DISOD 2 GM/DEXTROSE 50 ML IV SCH (17:20)
[2021-12-20 18:49] VITALS: BP 134/76
[2021-12-20 19:43] VITALS: BP 126/68
[2021-12-20] MEDS: SODIUM ZIRCONIUM CYCLOSILICATE 5 GM POWDER PACKET PO SCH (21:00)
[2021-12-20] MEDS: ATORVASTATIN CALCIUM 40 MG TABLET PO SCH (21:31)
[2021-12-20] MEDS: DOCUSATE SODIUM 100 MG CAPSULE PO SCH (21:31)
[2021-12-20] MEDS: MELATONIN 5 MG TABLET PO PRN (21:32)
[2021-12-20] MEDS: OxyCODONE HCL/ACETAMINOPHEN 5-325 MG TABLET PO PRN (21:32)
[2021-12-21 00:20] VITALS: BP 125/71
[2021-12-21 04:26] VITALS: BP 131/99
[2021-12-21] MEDS: OxyCODONE HCL/ACETAMINOPHEN 5-325 MG TABLET PO PRN ×2 (04:36→20:39)
[2021-12-21] MEDS: CefoTEtan DISOD 2 GM/DEXTROSE 50 ML IV SCH ×2 (06:38→17:06)
[2021-12-21 08:34] VITALS: BP 144/90
[2021-12-21 08:39] LABS: HEMATOCRIT 27.2 % (41-53); HEMOGLOBIN 8.8 g/dL (13.5-17.5); LYMPHOCYTES # (AUTO) 0.5 K/uL (1.0-4.8); LYMPHOCYTES % (AUTO) 5.4 % (22.0-44.0); MEAN CORPUSCULAR HEMOGLOBIN 26.7 pg (26.0-34.0); MEAN CORPUSCULAR HGB CONC 32.4 G/dL (31.0-37.0); MEAN CORPUSCULAR VOLUME 82 fL (80-100); MONOCYTES # (AUTO) 1.1 K/uL (0.1-1.0); MONOCYTES % (AUTO) 11.2 % (2.0-9.0); NEUTROPHILS # (AUTO) 7.9 K/uL (1.8-7.7); NEUTROPHILS % (AUTO) 81.4 % (40.0-70.0); PLATELET COUNT (AUTO) 189 K/uL (150-450); RED BLOOD CELL COUNT(AUTO) 3.31 MIL/uL (4.50-5.90); RED CELL DISTRIBUTION WIDTH 17.7 % (11.5-14.5)
[2021-12-21 08:54] LABS: ALBUMIN 2.7 g/dL (3.4-5.0); BILIRUBIN,TOTAL 0.8 mg/dL (0.1-1.0); CALCIUM, TOTAL 8.8 mg/dL (8.8-10.5); CREATININE 3.11 mg/dL (0.60-1.30); POTASSIUM 4.6 mmol/L (3.5-5.1); TOTAL PROTEIN, SERUM 7.5 g/dL (6.4-8.2)
[2021-12-21] MEDS: SODIUM ZIRCONIUM CYCLOSILICATE 5 GM POWDER PACKET PO SCH ×2 (09:00→20:38)
[2021-12-21] MEDS: FAMOTIDINE 20 MG TABLET PO SCH (09:41)
[2021-12-21] MEDS: DOCUSATE SODIUM 100 MG CAPSULE PO SCH ×2 (09:41→20:38)
[2021-12-21 11:46] LABS: GLUCOMETER DEV NAME(LOC) 5S.1B; GLUCOSE,POINT OF CARE 114 MG/DL (70-110)
[2021-12-21 12:41] VITALS: BP 152/110
[2021-12-21] MEDS: BUMETANIDE 10 MG in DEXTROSE 5%-WATER 60 ML IV SCH (13:38)
[2021-12-21] MEDS: HEPARIN SODIUM 25000 UNITS/D5W 250 ML IV PRN (13:54)
[2021-12-21 15:45] VITALS: BP 123/86
[2021-12-21 20:00] VITALS: BP 126/74
[2021-12-21] MEDS: ATORVASTATIN CALCIUM 40 MG TABLET PO SCH (20:38)
[2021-12-21] MEDS: MELATONIN 5 MG TABLET PO PRN (20:38)
[2021-12-21 20:56] LABS: GLUCOMETER DEV NAME(LOC) 5S.1B; GLUCOSE,POINT OF CARE 126 MG/DL (70-110)
[2021-12-21 21:00] LABS: GLUCOMETER DEV NAME(LOC) 5S.1B; GLUCOSE,POINT OF CARE 129 MG/DL (70-110)
[2021-12-22] VITALS: BP 153/82
[2021-12-22 04:00] VITALS: BP 116/73
[2021-12-22 05:21] LABS: GLUCOMETER DEV NAME(LOC) 5S.1B; GLUCOSE,POINT OF CARE 131 MG/DL (70-110)
[2021-12-22] MEDS: CefoTEtan DISOD 2 GM/DEXTROSE 50 ML IV SCH ×2 (05:31→18:14)
[2021-12-22] MEDS: HEPARIN SODIUM 25000 UNITS/D5W 250 ML IV PRN (05:33)
[2021-12-22] MEDS: BUMETANIDE 10 MG in DEXTROSE 5%-WATER 60 ML IV SCH (05:34)
[2021-12-22 08:00] VITALS: BP 128/75
[2021-12-22] MEDS: MULTIVITAMINS WITH MINERALS, THERAPEUTIC TABLET PO SCH (08:28)
[2021-12-22] MEDS: FAMOTIDINE 20 MG TABLET PO SCH (08:28)
[2021-12-22] MEDS: DOCUSATE SODIUM 100 MG CAPSULE PO SCH ×2 (08:28→20:03)
[2021-12-22] MEDS: SODIUM ZIRCONIUM CYCLOSILICATE 5 GM POWDER PACKET PO SCH (08:28)
[2021-12-22] MEDS: OxyCODONE HCL/ACETAMINOPHEN 5-325 MG TABLET PO PRN ×2 (11:42→20:04)
[2021-12-22 11:43] LABS: CALCIUM, TOTAL 8.6 mg/dL (8.8-10.5); CREATININE 2.78 mg/dL (0.60-1.30); POTASSIUM 4.5 mmol/L (3.5-5.1)
[2021-12-22 11:49] LABS: ALBUMIN 2.5 g/dL (3.4-5.0); BILIRUBIN,TOTAL 0.7 mg/dL (0.1-1.0); MAGNESIUM 1.6 mg/dL (1.80-2.40)
[2021-12-22 16:00] VITALS: BP 143/89
[2021-12-22] MEDS ORDERED: MAGNESIUM SULFATE 1 GM in DEXTROSE 5%-WATER 50 ML IV ONE (18:00)
[2021-12-22 19:37] VITALS: BP 150/86
[2021-12-22] MEDS ORDERED: SODIUM CHLORIDE 0.9% 250 ML IV ONE (20:00)
[2021-12-22] MEDS: MELATONIN 5 MG TABLET PO PRN (20:04)
[2021-12-22] MEDS: ATORVASTATIN CALCIUM 40 MG TABLET PO SCH (20:04)
[2021-12-22 20:06] LABS: GLUCOMETER DEV NAME(LOC) 5N.1C; GLUCOSE,POINT OF CARE 138 MG/DL (70-110)
[2021-12-22 23:10] LABS: HEMATOCRIT 26.6 % (41-53); HEMOGLOBIN 8.3 g/dL (13.5-17.5)
[2021-12-23 02:08] VITALS: BP 129/85
[2021-12-23] MEDS: LORazepam 1 MG TABLET PO PRN ×2 (02:17→23:06)
[2021-12-23 04:30] VITALS: BP 121/66
[2021-12-23] MEDS: CefoTEtan DISOD 2 GM/DEXTROSE 50 ML IV SCH ×2 (05:39→17:48)
[2021-12-23] MEDS: HEPARIN SODIUM 25000 UNITS/D5W 250 ML IV PRN (05:41)
[2021-12-23 06:01] LABS: GLUCOMETER DEV NAME(LOC) 5N.1C; GLUCOSE,POINT OF CARE 107 MG/DL (70-110)
[2021-12-23 06:56] LABS: CALCIUM, TOTAL 8.5 mg/dL (8.8-10.5); CREATININE 2.76 mg/dL (0.60-1.30); MAGNESIUM 1.4 mg/dL (1.80-2.40); PHOSPHORUS 4.7 mg/dL (2.5-4.9)
[2021-12-23 07:13] LABS: POTASSIUM 4.3 mmol/L (3.5-5.1)
[2021-12-23 08:33] VITALS: BP 142/77
[2021-12-23] MEDS: DOCUSATE SODIUM 100 MG CAPSULE PO SCH ×2 (09:00→20:30)
[2021-12-23] MEDS: FAMOTIDINE 20 MG TABLET PO SCH (09:04)
[2021-12-23] MEDS: MULTIVITAMINS WITH MINERALS, THERAPEUTIC TABLET PO SCH (09:04)
[2021-12-23] MEDS: BUMETANIDE 10 MG in DEXTROSE 5%-WATER 60 ML IV SCH (09:05)
[2021-12-23] MEDS ORDERED: APIXABAN 2.5 MG TABLET PO SCH (09:30)
[2021-12-23 11:31] LABS: GLUCOMETER DEV NAME(LOC) 5N.1C; GLUCOSE,POINT OF CARE 136 MG/DL (70-110)
[2021-12-23] MEDS ORDERED: MAGNESIUM SULFATE 2 GM/WATER 50 ML IV ONE (11:45)
[2021-12-23 12:22] VITALS: BP 137/69
[2021-12-23 16:36] LABS: GLUCOMETER DEV NAME(LOC) 5N.1C; GLUCOSE,POINT OF CARE 140 MG/DL (70-110)
[2021-12-23] MEDS: BUMETANIDE 0.25 MG/ML 10 ML VIAL IVP SCH ×2 (17:48→23:58)
[2021-12-23 18:17] VITALS: BP 127/76
[2021-12-23 20:15] VITALS: BP 156/104
[2021-12-23] MEDS: OxyCODONE HCL/ACETAMINOPHEN 5-325 MG TABLET PO PRN (20:30)
[2021-12-23] MEDS: ATORVASTATIN CALCIUM 40 MG TABLET PO SCH (20:30)
[2021-12-23] MEDS: MELATONIN 5 MG TABLET PO PRN (20:30)
[2021-12-23] MEDS: APIXABAN 5 MG TABLET PO SCH (20:33)
[2021-12-23 22:37] LABS: GLUCOMETER DEV NAME(LOC) 5S.2B; GLUCOSE,POINT OF CARE 134 MG/DL (70-110)
[2021-12-24 00:25] VITALS: BP 132/101
[2021-12-24] MEDS: OxyCODONE HCL/ACETAMINOPHEN 5-325 MG TABLET PO PRN ×2 (00:27→04:27)
[2021-12-24] MEDS: CefoTEtan DISOD 2 GM/DEXTROSE 50 ML IV SCH ×2 (04:25→17:24)
[2021-12-24 05:00] VITALS: BP 151/97
[2021-12-24] MEDS: INSULIN LISPRO 100 UNITS/ML SQ PRN (05:48)
[2021-12-24] MEDS: LORazepam 1 MG TABLET PO PRN (06:12)
[2021-12-24 07:46] LABS: CALCIUM, TOTAL 8.4 mg/dL (8.8-10.5); CREATININE 2.62 mg/dL (0.60-1.30); MAGNESIUM 1.7 mg/dL (1.80-2.40); POTASSIUM 4.1 mmol/L (3.5-5.1)
[2021-12-24 08:01] LABS: GLUCOMETER DEV NAME(LOC) 5S.2B; GLUCOSE,POINT OF CARE 188 MG/DL (70-110)
[2021-12-24] MEDS: DOCUSATE SODIUM 100 MG CAPSULE PO SCH ×2 (08:12→20:12)
[2021-12-24] MEDS: FAMOTIDINE 20 MG TABLET PO SCH (08:12)
[2021-12-24] MEDS: APIXABAN 5 MG TABLET PO SCH ×2 (08:12→20:04)
[2021-12-24] MEDS: MULTIVITAMINS WITH MINERALS, THERAPEUTIC TABLET PO SCH (08:12)
[2021-12-24] MEDS: BUMETANIDE 0.25 MG/ML 10 ML VIAL IVP SCH (08:13)
[2021-12-24 08:27] VITALS: BP 141/85
[2021-12-24] MEDS: METOPROLOL SUCCINATE 25 MG ER TABLET PO SCH (10:12)
[2021-12-24] MEDS ORDERED: MAGNESIUM SULFATE 1 GM in DEXTROSE 5%-WATER 50 ML IV ONE (12:00)
[2021-12-24 12:06] LABS: GLUCOMETER DEV NAME(LOC) 5S.2B; GLUCOSE,POINT OF CARE 132 MG/DL (70-110)
[2021-12-24 12:39] VITALS: BP 136/76
[2021-12-24 16:21] LABS: GLUCOMETER DEV NAME(LOC) 5S.2B; GLUCOSE,POINT OF CARE 209 MG/DL (70-110)
[2021-12-24 16:31] VITALS: BP 133/75
[2021-12-24] MEDS: ATORVASTATIN CALCIUM 40 MG TABLET PO SCH (20:04)
[2021-12-24] MEDS: MELATONIN 5 MG TABLET PO PRN (20:04)
[2021-12-24] MEDS ORDERED: BUMETANIDE 0.25 MG/ML 10 ML VIAL IVP SCH (21:00)
[2021-12-24 21:38] VITALS: BP 114/76
[2021-12-24 23:36] LABS: GLUCOMETER DEV NAME(LOC) 5N.1C; GLUCOSE,POINT OF CARE 121 MG/DL (70-110)
[2021-12-24 23:36] LABS: GLUCOMETER DEV NAME(LOC) 5S.2B; GLUCOSE,POINT OF CARE 116 MG/DL (70-110)
[2021-12-25 01:09] VITALS: BP 114/57
[2021-12-25 04:25] VITALS: BP 151/107
[2021-12-25] MEDS: CefoTEtan DISOD 2 GM/DEXTROSE 50 ML IV SCH (04:38)
[2021-12-25 06:07] LABS: CALCIUM, TOTAL 8.6 mg/dL (8.8-10.5); CREATININE 2.53 mg/dL (0.60-1.30); MAGNESIUM 1.8 mg/dL (1.80-2.40); PHOSPHORUS 4.2 mg/dL (2.5-4.9); POTASSIUM 4.8 mmol/L (3.5-5.1)
[2021-12-25 08:00] VITALS: BP 119/60
[2021-12-25] MEDS: DOCUSATE SODIUM 100 MG CAPSULE PO SCH ×2 (09:00→21:00)
[2021-12-25] MEDS: MULTIVITAMINS WITH MINERALS, THERAPEUTIC TABLET PO SCH (09:50)
[2021-12-25] MEDS: FAMOTIDINE 20 MG TABLET PO SCH (09:50)
[2021-12-25] MEDS: APIXABAN 5 MG TABLET PO SCH ×2 (09:51→21:06)
[2021-12-25] MEDS: METOPROLOL SUCCINATE 25 MG ER TABLET PO SCH (09:51)
[2021-12-25 12:00] VITALS: BP 132/79
[2021-12-25 12:11] LABS: GLUCOMETER DEV NAME(LOC) 5S.2B; GLUCOSE,POINT OF CARE 289 MG/DL (70-110)
[2021-12-25] MEDS: INSULIN LISPRO 100 UNITS/ML SQ PRN (12:27)
[2021-12-25 12:56] LABS: GLUCOMETER DEV NAME(LOC) 5N.1C; GLUCOSE,POINT OF CARE 115 MG/DL (70-110)
[2021-12-25 16:00] VITALS: BP 125/80
[2021-12-25 19:21] LABS: GLUCOMETER DEV NAME(LOC) 5N.1C; GLUCOSE,POINT OF CARE 124 MG/DL (70-110)
[2021-12-25 20:30] VITALS: BP 130/75
[2021-12-25] MEDS: ATORVASTATIN CALCIUM 40 MG TABLET PO SCH (21:06)
[2021-12-26 05:16] LABS: GLUCOMETER DEV NAME(LOC) 5N.1C; GLUCOSE,POINT OF CARE 131 MG/DL (70-110)
[2021-12-26 07:31] LABS: CALCIUM, TOTAL 8.7 mg/dL (8.8-10.5); CREATININE 2.16 mg/dL (0.60-1.30); PHOSPHORUS 3.5 mg/dL (2.5-4.9); POTASSIUM 4.4 mmol/L (3.5-5.1)
[2021-12-26 09:33] VITALS: BP 149/81
[2021-12-26] MEDS ORDERED: APIX2.5T PO (12:17)
[2021-12-26 17:16] LABS: GLUCOMETER DEV NAME(LOC) 5N.1C; GLUCOSE,POINT OF CARE 127 MG/DL (70-110)
[2021-12-28 12:11] LABS: GLUCOSE,POINT OF CARE 111 MG/DL (70-110)
== END 2021-12-26 09:40 | disposition left against medical advice (07) | DRG 720 ==
LOC: ICU 12:32 → 5N 18:20
PROVIDERS: ADMIT Internal Medicine; ATTEND Internal Medicine
DX: A41.02 Sepsis due to Methicillin resistant Staphylococcus aureus (principal); I50.23 Acute on chronic systolic (congestive) heart failure; J96.01 Acute respiratory failure with hypoxia; J96.02 Acute respiratory failure with hypercapnia; J91.8 Pleural effusion in other conditions classified elsewhere; N17.9 Acute kidney failure, unspecified; D63.8 Anemia in other chronic diseases classified elsewhere; E87.1 Hypo-osmolality and hyponatremia; I42.9 Cardiomyopathy, unspecified; I48.92 Unspecified atrial flutter; I13.0 Hypertensive heart and chronic kidney disease with heart failure and stage 1 through stage 4 chronic kidney disease, or unspecified chronic kidney disease; E11.22 Type 2 diabetes mellitus with diabetic chronic kidney disease; Z53.29 Procedure and treatment not carried out because of patient's decision for other reasons; E66.01 Morbid (severe) obesity due to excess calories; E83.42 Hypomagnesemia; I48.0 Paroxysmal atrial fibrillation; N18.4 Chronic kidney disease, stage 4 (severe); L03.90 Cellulitis, unspecified; E87.5 Hyperkalemia; K76.9 Liver disease, unspecified; F99 Mental disorder, not otherwise specified; Z91.19 Patient's noncompliance with other medical treatment and regimen; Z91.013 Allergy to seafood; Z68.38 Body mass index [BMI] 38.0-38.9, adult
CPT/HCPCS: 32555; 71045; 76942; 80048; 80053; 82271; 82962; 83735; 84100; 85014; 85018; 85025; 85610; 85730; 87081; 97163; J1630; J1644; J2405; J3475; J3490; J7050; J7060; Q9967; 36415-L1; 36415-TC